=== PATIENT | male | born 1965 | race Caucasian/White ===

== ENCOUNTER 2017-02-25 11:00 | Emergency (ER) | payer OTHER ==
[2017-02-25 11:25] VITALS: BP 140/78
--- NOTE | 2017-02-25 11:52 | EDM.PDOC ---
[id number] 4d SPOKE WITH CLINIC CAME HERE Time Seen by Provider: 02/25/17 11:52 Source of Information: Reports: Patient, Family History Limitations: Reports: No limitations - History of Present Illness INITIAL COMMENTS - FREE TEXT/NARRATIVE: 51-year-old male who was been having fevers off-and-on for the past 4 days, developed a cough yesterday and today was somewhat dizzy. He tends to get these symptoms twice yearly and gets a Z-Javier from his primary care provider. He called the clinic to be seen in the second and emergency room. His fever broke yesterday and other than the dizziness and cough he thinks he is feeling better. No nausea or vomiting. Cough is nonproductive. He also had one episode of dysuria yesterday but that seems to have resolved. Severity: mild Associated Symptoms: Reports: cough, fever/chills, other. Denies: chest pain, nausea/vomiting - Related Data Allergies Allergy/AdvReac Type Severity Reaction Status Date / Time Penicillins Allergy Cannot Verified 02/25/17 11:32 Remember sulfamethoxazole Allergy Hives Verified 02/25/17 11:32 [From Bactrim] trimethoprim [From Bactrim] Allergy Hives Verified 02/25/17 11:32 Home Meds: Home Meds Acetaminophen/Phenyltolx [Tension Headache Reliever] 2 tab PO ASDIRECTED PRN 06/06 [History] Aspirin/Calcium Carbonate/Mag [Aspirin Buffered 325 mg Tab] 1 tab PO DAILY 02/25 [History] Calcium Carb/Magnesium Hydrox [Rolaids Chewable Tablet] 1 tab PO BEDTIME PRN 06/06 [History] Metoprolol Tartrate 50 mg PO DAILY 02/25/17 [History] amLODIPine [Norvasc] 10 mg PO DAILY 02/25/17 [History] Past Medical History Cardiovascular History: Reports: Hypertension Gastrointestinal History: Reports: GERD Genitourinary History: Reports: Other (see below) Other Genitourinary History: urinary urgency Musculoskeletal History: Reports: Arthritis, Fracture Neurological History: Reports: Migraines - Infectious Disease History Infectious Disease History: Reports: Measles, Mumps - Past Surgical History HEENT Surgical History: Reports: Myringotomy w tube(s) Social & Family History - Tobacco Use Smoking Status *Q: Former Smoker Used Tobacco, but Quit: Yes Month Tobacco Last Used: 2006 - Caffeine Use Caffeine Use: Reports: Soda - Recreational Drug Use Recreational Drug Use: No ED ROS GENERAL - Review of Systems Review Of Systems: See Below Constitutional: Reports: fever, chills, malaise, other (Some dizziness with standing) Respiratory: Reports: Cough. Denies: Shortness of Breath Cardiovascular: Denies: Chest pain GI/Abdominal: Denies: Abdominal pain Musculoskeletal: Reports: no symptoms Skin: Reports: no symptoms Neurological: Reports: Dizziness. Denies: Headache Psychiatric: Reports: No symptoms ED EXAM, GENERAL - Physical Exam Exam: See Below Exam Limited By: No limitations General Appearance: alert, no apparent distress Throat/Mouth: Normal inspection Head: atraumatic Respiratory/Chest: no respiratory distress, lungs clear Cardiovascular: regular rate, rhythm Back Exam: No: CVA tenderness (R), CVA tenderness (L) Neurological: alert, oriented Skin Exam: Warm, Dry Course - Vital Signs Last Recorded V/S: Last Vital Signs Temp 97.1 F 02/25/17 11:35 Pulse 76 02/25/17 11:35 Resp 18 02/25/17 11:35 BP 140/78 02/25/17 11:35 Pulse Ox 96 02/25/17 11:35 - Orders/Labs/Meds Orders: Active Orders 24 hr Category Date Time Status CULTURE STREP A CONFIRMATION [] Routine Lab 02/25/17 12:12 Results STREP SCRN A RAPID W CULT CONF [] Routine Lab 02/25/17 12:12 Results Labs: Laboratory Tests 02/25/17 Range/Units 11:48 Urine Color Yellow Urine Appearance Slightly cloudy Urine pH 5.0 (4.5-8.0) Ur Specific Clark 1.015 (1.008-1.030) Urine Protein Trace (NEGATIVE) mg/dL Urine Glucose (UA) Normal (NEGATIVE) mg/dL Urine Ketones Negative (NEGATIVE) mg/dL Urine Occult Blood Trace (NEGATIVE) Urine Nitrite Negative (NEGAITVE) Urine Bilirubin Negative (NEGATIVE) Urine Urobilinogen 1 (NORMAL) mg/dL Ur Leukocyte Esterase Small (NEGATIVE) Urine RBC 5-10 H (0-5) Urine WBC 5-10 H (0-5) Ur Epithelial Cells Few Amorphous Sediment Not seen Urine Bacteria Few Urine Mucus Not seen - Re-Assessments/Exams Free Text/Narrative Re-Assessment/Exam: 02/25/17 12:16 A UA and rapid strep were obtained. 02/25/17 12:38 UA is negative, strep is negative. Patient's vitals are stable. I explained that this is likely a viral syndrome that is running its course and is improving , it would be best to avoid antibiotics. Patient agreed to rest and push fluids for the next 2 days and will call or return if worsening. Departure - Departure Time of Disposition: 12:56 Disposition: Home, Self-Care 01 Condition: good Clinical Impression: Viral bronchitis Instructions: Acute Bronchitis Referrals: Stef Benz MD [Primary Care Provider] - Forms: ED Department Discharge Care Plan Goals: Rest and fluids for the next 2 days and increase activity as tolerated. Return or call on Saturday if not improving or other concerns. - My Orders Last 24 Hours: My Active Orders 02/25/17 12:12 CULTURE STREP A CONFIRMATION [RM] Routine STREP SCRN A RAPID W CULT CONF [] Routine - Assessment/Plan Last 24 Hours: My Active Orders 02/25/17 12:12 CULTURE STREP A CONFIRMATION [RM] Routine STREP SCRN A RAPID W CULT CONF [] Routine
== END 2017-02-25 12:56 | disposition home or self-care (01) ==
LOC: JP.ED 11:00
DX: J20.8 Acute bronchitis due to other specified organisms (principal); I10 Essential (primary) hypertension; Z96.22 Myringotomy tube(s) status; Z87.891 Personal history of nicotine dependence; Z79.82 Long term (current) use of aspirin; Z79.899 Other long term (current) drug therapy; Z88.0 Allergy status to penicillin; Z88.1 Allergy status to other antibiotic agents
CPT/HCPCS: 81001; 87081; 87430; 99284